=== PATIENT | female | born 1945 | race Caucasian/White ===

== ENCOUNTER 2018-10-25 16:51 | Emergency (ER) | payer MEDICARE, BC ==
[2018-10-25] MEDS: DEXAMETHASONE 10 MG/ML 1 ML INJ IM (18:28)
[2018-10-25] MEDS: KETOROLAC 30 MG INJ IM (18:29)
== END 2018-10-25 19:15 | disposition home or self-care (01) ==
LOC: FTE 16:51
DX: M54.41 Lumbago with sciatica, right side (principal); E03.9 Hypothyroidism, unspecified; I10 Essential (primary) hypertension; Z85.79 Personal history of other malignant neoplasms of lymphoid, hematopoietic and related tissues; Z87.891 Personal history of nicotine dependence
CPT/HCPCS: 96372; 99284-25